=== PATIENT | male | born 1975 | race Caucasian/White ===

== ENCOUNTER 2018-01-10 13:34 | Emergency (ER) | payer BC ==
[~2018-01-10] VITALS: Ht 188 cm; Wt 108.9 kg
[~2018-01-10 13:34] MED LIST: ALLEGRA30 MG PO; FLONASE; FLUOXETINE; NORCO 5-325 TA1 EACH PO
[2018-01-10] MEDS ORDERED: ACETAMINOPHEN-1 EAC1 PO (14:19)
[2018-01-10 14:28] VITALS: BP 131/81
== END 2018-01-10 14:29 | disposition home or self-care (01) ==
LOC: M.ERS 13:34
DX: S93.505A Unspecified sprain of left lesser toe(s), initial encounter (principal); W22.8XXA Striking against or struck by other objects, initial encounter; Y93.89 Activity, other specified; Y92.89 Other specified places as the place of occurrence of the external cause; Y99.8 Other external cause status

== ENCOUNTER 2018-02-28 16:13 | Emergency (ER) | payer BC ==
[~2018-02-28] VITALS: Ht 188 cm; Wt 107.5 kg
[~2018-02-28 16:13] MED LIST changes: +ACETAMINOPHEN-1 EAC1 PO
[2018-02-28] MEDS ORDERED: ZANTAC 150MG T150 MG PO (16:23)
[2018-02-28] MEDS ORDERED: OMEPRAZOLE 20 M20 M1 PO (16:23)
[2018-02-28] MEDS ORDERED: HYDROCODONE-AP1 EAC6 PO (18:05)
[2018-02-28] MEDS ORDERED: ZOFRAN4 MG PO (18:05)
[2018-02-28 18:23] VITALS: BP 152/108
== END 2018-02-28 18:24 | disposition home or self-care (01) ==
LOC: M.ERS 16:13
DX: S01.81XA Laceration without foreign body of other part of head, initial encounter (principal); W22.8XXA Striking against or struck by other objects, initial encounter; Y93.89 Activity, other specified; Y92.89 Other specified places as the place of occurrence of the external cause; Y99.8 Other external cause status

== ENCOUNTER 2019-05-07 14:10 | Emergency (ER) | payer BC ==
[~2019-05-07] VITALS: Ht 188 cm; Wt 111.1 kg
[~2019-05-07 14:10] MED LIST changes: +HYDROCODONE-AP1 EAC6 PO; +OMEPRAZOLE 20 M20 M1 PO; +ZANTAC 150MG T150 MG PO; +ZOFRAN4 MG PO
[2019-05-07] MEDS ORDERED: PROZAC10 M1 PO (14:20)
[2019-05-07] MEDS ORDERED: ZOFRAN ODT4 MG SUBLING (14:34)
[2019-05-07] MEDS ORDERED: FLEXERIL PO (14:34)
[2019-05-07] MEDS ORDERED: NORCO 5-325 TA1 EAC1 PO (14:34)
[2019-05-07 14:42] VITALS: BP 108/84
== END 2019-05-07 14:42 | disposition home or self-care (01) ==
LOC: M.ERS 14:10
DX: S16.1XXA Strain of muscle, fascia and tendon at neck level, initial encounter (principal); Z90.49 Acquired absence of other specified parts of digestive tract; X50.0XXA Overexertion from strenuous movement or load, initial encounter; Y92.89 Other specified places as the place of occurrence of the external cause; Y93.89 Activity, other specified; Y99.8 Other external cause status

== ENCOUNTER 2019-12-09 04:10 | Emergency (ER) | payer BC ==
[~2019-12-09] VITALS: Ht 188 cm; Wt 111.1 kg
[~2019-12-09 04:10] MED LIST changes: +FLEXERIL PO; +NORCO 5-325 TA1 EAC1 PO; +PROZAC10 M1 PO; +ZOFRAN ODT4 MG SUBLING
[2019-12-09] MEDS ORDERED: AUGMENTIN 875-1 EACH PO (04:46)
[2019-12-09 04:53] LABS: ABSOLUTE EOSINOPHILS 0.4 thou/uL (0.0-0.7); ABSOLUTE MONOCYTES 0.7 thou/uL (0.0-1.2); ABSOLUTE NEUTROPHILS 5.7 thou/uL (1.6-8.1); HEMATOCRIT 42.6 % (42.0-52.0); LYMPHOCYTES 12.3 %; MCHC 32.8 g/dL (28.0-37.0); MCV 82.3 fL (80.0-100.0); MONOCYTES 8.6 %; MPV 8.8 fl. (7.2-11.1); NUCLEATED RBCS 0 /100WBC; PLATELET COUNT* 289 thou/uL (150-400); POLYS 74.1 %; RBC 5.18 mil/uL (4.50-6.00); RDW-CV 17.9 % (10.5-14.5); WBC 7.8 thou/uL (4.0-11.0)
[2019-12-09 05:09] LABS: CALCIUM 8.1 mg/dL (8.5-10.1); CREATININE 1.3 mg/dL (0.6-1.3); POTASSIUM 3.6 mmol/L (3.5-5.1)
[2019-12-09 05:10] LABS: INR 1.2; PROTIME 12.5 Seconds (9.20-11.50)
[2019-12-09 05:20] LABS: TOTAL BILIRUBIN 0.6 mg/dL (<0.1-1.0); TOTAL PROTEIN 6.2 g/dL (6.4-8.2)
[2019-12-09] MEDS ORDERED: CARAFATE 1 GM TA1 GM PO (05:52)
[2019-12-09 06:00] VITALS: BP 146/75
--- NOTE | 2019-12-09 10:45 | EKG ---
[place] [address] ELECTROCARDIOGRAM REPORT Name: JOSE F HOLLAND Room: [facility]#: [id number] Admission: 12/09/19 Attend Phys: Discharge: 12/09/19 Date of : 77 Date of Service: 12/09/19 0429 Report #: [id number] THIS REPORT FOR: //name// 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
== END 2019-12-09 06:00 | disposition home or self-care (01) ==
LOC: M.ERS 04:10
PROVIDERS: Emergency Medicine
DX: R06.00 Dyspnea, unspecified (principal); R07.89 Other chest pain; Z90.49 Acquired absence of other specified parts of digestive tract; Z79.899 Other long term (current) drug therapy

== ENCOUNTER → 2020-08-03 | Outpatient (CLI) | payer OTHER ==
[~2020-08-03] MED LIST changes: +AUGMENTIN 875-1 EACH PO; +CARAFATE 1 GM TA1 GM PO
--- NOTE | 2020-08-03 17:32 | EXE ---
[place] [address] STRESS ECHOCARDIOGRAM Name: JOSE F HOLLAND Room: [facility]#: [id number] Admission: 08/03/20 Attend Phys: Philip Gordon, Discharge: Date of : 77 Date of Service: 08/03/20 1732 Report #: [id number] THIS REPORT FOR: cc: Darius Johnson MD, Meng MD Liston, Michael J. MD [facility] ~ APPROVED REPORT Study performed: 08/03/2020 15:36:27 Exam: Stress Echocardiogram Indication: Near syncope, Palpitations Patient Location: Out-Patient Stress Nurse: Sunni Gomez RN Supervising Physician: Micky Jiang MD Ht: 6 ft 2 in HR: 87 bpm BP: 162/109 mmHg Medical History Cardiac Risk Factors: Hyperlipidemia, HTN Procedure The patient underwent an Exercise Stress Test using the Butch Protocol. Blood pressure, heart rate, and EKG were monitored. An Echocardiogram was performed by speech therapist technician in four stages in quad fashion. At peak stress, four selected images were obtained and placed side by side with resting images for comparison. Stress Test Details Stress Test: Exercise stress testing was performed using a Butch protocol. HR Resting HR: 87 bpm Max Heart Rate (APMHR): 176 bpm Max HR Achieved: 160 bpm Target HR (85% APMHR): 149 bpm % of APMHR: 90 Recovery HR: 110 bpm HR response to stress: Normal HR response to stress BP Resting BP: 162/109 mmHg Max BP: 234/140 mmHg Recovery BP: 131/100 [place] [address] STRESS ECHOCARDIOGRAM Name: JOSE F HOLLAND Room: [facility]#: [id number] Admission: 08/03/20 Attend Phys: Philip Gordon, Discharge: Date of : 77 Date of Service: 08/03/20 1732 Report #: [id number] [id number] ECG: Sinus Rhythm Stress ECG: Sinus Tachycardia ST Change: None Arrhythmia: None Recovery ECG: Sinus Rhythm Recovery ST Change: None Recovery Arrhythmia: VPC Clinical Reason for Termination: Completed protocol Exercise duration: 10 min 09 sec Highest Stage Achieved: Stage 4: 4.2 mph at 16% grade. Exercise capacity: 12.18 METs The patient tolerated standard Butch protocol exercise without significant cardiac complaint. Stress ECG Conclusion The baseline twelve-lead EKG shows sinus rhythm without significant ST segment or T wave abnormality. EKGs obtained during and post exercise show sinus rhythm and sinus tachycardia without significant ST segment changes. Pre-Stress Echo The resting Echocardiogram showed normal left ventricular contractility with an estimated Ejection Fraction of about 55-60%. The resting echocardiogram demonstrated normal wall motion in all wall segments. Post-Stress Echo The stress Echocardiogram showed normal left ventricular contractility with an estimated Ejection Fraction of about >70%. Compared to rest, there were no stress-induced wall motion abnormalities. Conclusion Clinical Response: Non-ischemic Exercise Capacity: Average Stress ECG Response: Non-ischemic Stress Echo Images: [place] [address] STRESS ECHOCARDIOGRAM Name: JOSE F HOLLAND Room: [facility]#: [id number] Admission: 08/03/20 Attend Phys: Philip Gordon, Discharge: Date of : 77 Date of Service: 08/03/201731 Report #: [id number] Other Information Study Quality: Good <ELECTRONICALLY SIGNED> By: Philip Gordon MD, FACC 08/03/201731 31 31 Philip Gordon MD, FACC /INF
== END ==
LOC: M.CRD 14:38
PROVIDERS: ATTEND Internal Medicine Cardiovascular Disease
DX: I10 Essential (primary) hypertension (principal); R55 Syncope and collapse

== ENCOUNTER → 2020-11-30 | Outpatient (CLI) | payer OTHER | LOC: M.LAB 07:51 | PROVIDERS: ATTEND Internal Medicine Gastroenterology | DX: Z01.812 Encounter for preprocedural laboratory examination (principal); Z20.822 Contact with and (suspected) exposure to COVID-19 ==

== ENCOUNTER → 2020-12-24 | Outpatient (CLI) | payer BC, OTHER ==
[~2020-12-24] MED LIST changes: +ADDERALL 30 MG30 MG PO; +ALEVE220 M1 PO; +CRESTOR20 MG PO; +HYDROCODON-ACE1 EAC7 PO; +MEDROLDOSEPACK PO; +METOPROLOL SUCC50 MG PO
== END ==
LOC: M.PC 10:15
PROVIDERS: ATTEND Anesthesiology Pain Medicine
DX: M54.17 Radiculopathy, lumbosacral region (principal); M25.552 Pain in left hip; M25.551 Pain in right hip; M54.5 Low back pain; I10 Essential (primary) hypertension; K21.9 Gastro-esophageal reflux disease without esophagitis; Z79.891 Long term (current) use of opiate analgesic; Z79.899 Other long term (current) drug therapy

== ENCOUNTER → 2021-01-19 | Outpatient (CLI) | payer BC, OTHER | END | disposition home or self-care (01) | LOC: M.PC 08:30 | PROVIDERS: ATTEND Anesthesiology Pain Medicine | DX: M54.16 Radiculopathy, lumbar region (principal); I10 Essential (primary) hypertension; K21.9 Gastro-esophageal reflux disease without esophagitis; F32.9 Major depressive disorder, single episode, unspecified; Z98.890 Other specified postprocedural states; Z90.49 Acquired absence of other specified parts of digestive tract; Z79.899 Other long term (current) drug therapy ==

== ENCOUNTER → 2021-02-25 | Outpatient (CLI) | payer BC | END | disposition home or self-care (01) | LOC: M.PC 10:00 | PROVIDERS: ATTEND Anesthesiology Pain Medicine | DX: M54.16 Radiculopathy, lumbar region (principal); G89.29 Other chronic pain; I10 Essential (primary) hypertension; K21.9 Gastro-esophageal reflux disease without esophagitis; F32.9 Major depressive disorder, single episode, unspecified; Z98.890 Other specified postprocedural states; Z79.899 Other long term (current) drug therapy; Z90.49 Acquired absence of other specified parts of digestive tract ==

== ENCOUNTER → 2021-03-30 | Outpatient (CLI) | payer BC ==
[~2021-03-30] MED LIST changes: +NORVASC 2.5 MG2.5 M1 PO; -PROZAC10 M1 PO; +PROZAC40 MG PO
== END | disposition home or self-care (01) ==
LOC: M.PC 08:46
PROVIDERS: ATTEND Anesthesiology Pain Medicine
DX: M70.62 Trochanteric bursitis, left hip (principal); M54.16 Radiculopathy, lumbar region; I10 Essential (primary) hypertension; K21.9 Gastro-esophageal reflux disease without esophagitis; F32.9 Major depressive disorder, single episode, unspecified; Z98.890 Other specified postprocedural states; Z79.899 Other long term (current) drug therapy; Z90.49 Acquired absence of other specified parts of digestive tract

== ENCOUNTER → 2021-05-27 | Outpatient (CLI) | payer BC ==
[~2021-05-27] MED LIST changes: +HYDROCODONE-AP1 EA11 PO; +MOBIC15 MG PO
== END | disposition home or self-care (01) ==
LOC: M.PC 05-20 08:50
PROVIDERS: ATTEND Anesthesiology Pain Medicine
DX: M54.16 Radiculopathy, lumbar region (principal); G89.29 Other chronic pain; M70.62 Trochanteric bursitis, left hip; I10 Essential (primary) hypertension; F32.9 Major depressive disorder, single episode, unspecified; K21.9 Gastro-esophageal reflux disease without esophagitis; Z98.890 Other specified postprocedural states; Z79.899 Other long term (current) drug therapy

== ENCOUNTER → 2021-08-03 | Outpatient (CLI) | payer BC | END | disposition home or self-care (01) | LOC: M.PC 07-29 08:40 | PROVIDERS: ATTEND Anesthesiology Pain Medicine | DX: M25.552 Pain in left hip (principal); M70.62 Trochanteric bursitis, left hip; M54.16 Radiculopathy, lumbar region; I10 Essential (primary) hypertension; F32.9 Major depressive disorder, single episode, unspecified; Z98.890 Other specified postprocedural states; Z79.899 Other long term (current) drug therapy; Z90.49 Acquired absence of other specified parts of digestive tract ==